=== PATIENT | female | born 1995 | race Two or more races ===

== ENCOUNTER 2024-04-24 20:11 | Emergency (ER) | payer OTHER ==
[~2024-04-24] VITALS: Ht 154.9 cm; Wt 72.6 kg
[2024-04-24] MEDS ORDERED: PREVACID15 M1 PO (20:36)
[2024-04-24] MEDS ORDERED: SINGULAIR4 M1 PO (20:37)
[2024-04-24] MEDS ORDERED: PEPCID AC10 MG PO (20:37)
[2024-04-24] MEDS ORDERED: ZYRTEC10 M3 PO (20:37)
[2024-04-24] MEDS ORDERED: TOPROL XL25 M1 PO (20:37)
[2024-04-24] MEDS ORDERED: OSELTAMIVIR PHOSPHATE 75 MG CAPSULE PO ONE (21:15)
[2024-04-24] MEDS ORDERED: DEXAMETHASONE SODIUM PHOSPHATE 4 MG/ML VIAL IM ONE (21:15)
[2024-04-24 21:58] LABS: HEMATOCRIT 39.2 % (36.0-45.00); HEMOGLOBIN 12.9 g/dL (12.0-15.00); MEAN CELL VOLUME 90.6 fL (80.00-100.00); MEAN CORPUSCULAR HEMOGLOBIN 29.7 pg (27.00-32.0); MEAN CORPUSCULAR HGB CONC 32.8 g/dl (32.0-36.0); PLATELET COUNT 276 K/uL (150-450); RED BLOOD COUNT 4.33 M/uL (4.00-6.00); RED CELL DISTRIBUTION WIDTH 13.5 % (11.5-14.5)
[2024-04-24] MEDS ORDERED: OSEL75CA PO (22:30)
[2024-04-24] MEDS ORDERED: TUSNEL LIQUID178 ML PO (22:30)
== END 2024-04-24 22:43 | disposition home or self-care (01) ==
LOC: ER 20:14
PROVIDERS: General Practice
DX: J10.1 Influenza due to other identified influenza virus with other respiratory manifestations (principal); B34.9 Viral infection, unspecified; Z20.822 Contact with and (suspected) exposure to COVID-19